=== PATIENT | female | born 1965 | race American Indian/Alaskan Native ===

== ENCOUNTER 2017-11-28 22:18 | Emergency (ER) | payer SELFPAY ==
[2017-11-28 22:32] VITALS: RESP 18; TEMP 98.4
[2017-11-28] MEDS ORDERED: Sodium Chloride 0.9% 1,000 ML IV ONE (23:16)
--- NOTE | 2017-11-28 23:22 | C.PDOC ---
History Of Present Illness 52 year old female presents to the ER with a complaint of intermittent vaginal bleeding for the past 1 year, associated with hypogastric pain. Denies fever, chills, nausea, or vomiting. Chief Complaint (Nursing): Female Genitourinary History Per: Patient History/Exam Limitations: no limitations Onset/Duration Of Symptoms: Days, Intermittent Episodes Current Symptoms Are (Timing): Still Present Quality Of Discomfort: Unable To Describe Associated Symptoms: denies: Fever, Chills, Nausea, Vomiting Alleviating Factors: None Recent travel outside of the [place]: No Abnormal Vaginal Bleeding: Yes Past Medical History Reviewed: Historical Data, Nursing Documentation, Vital Signs Vital Signs: Last Vital Signs Temp 98.4 F 11/28/17 22:22 Pulse 72 11/29/17 02:20 Resp 18 11/29/17 02:20 BP 168/89 H 11/29/17 02:20 Pulse Ox 99 11/29/17 02:20 - Medical History PMH: HTN Family History: States: Unknown Family Hx - Social History Hx Alcohol Use: Yes (beer) Hx Substance Use: Yes - Immunization History Hx Tetanus Toxoid Vaccination: No Hx Influenza Vaccination: No Hx Pneumococcal Vaccination: No Review Of Systems Constitutional: Negative for: Fever, Chills Cardiovascular: Negative for: Chest Pain, Palpitations Respiratory: Negative for: Cough, Shortness of Breath Gastrointestinal: Positive for: Abdominal Pain. Negative for: Nausea, Vomiting Genitourinary: Positive for: Vaginal Bleeding Physical Exam - Physical Exam Appears: Non-toxic Skin: Normal Color, Warm, Dry Head: Atraumatic, Normacephalic Eye(s): bilateral: Normal Inspection Oral Mucosa: Moist Neck: Normal, Supple Chest: Symmetrical, No Tenderness Cardiovascular: Rhythm Regular Respiratory: Normal Breath Sounds, No Rales, No Rhonchi, No Wheezing Gastrointestinal/Abdominal: Soft, No Tenderness Pelvic: Normal External Exam, Other (Cervix closed, blood clot in the vault with minimal active bleeding, presence of mass anteriorly) Neurological/Psych: Oriented x3, Normal Speech ED Course And Treatment - Laboratory Results Result Diagrams: 11/28/17 23:27 11/28/17 23:27 O2 Sat by Pulse Oximetry: 97 (Room air) Pulse Ox Interpretation: Normal Progress Note: Blood work and pelvis US ordered. IV fluids administered. Disposition Counseled Patient/Family Regarding: Diagnosis - Disposition Referrals: [facility] [Outside] Disposition: HOME/ ROUTINE Disposition Time: 02:46 Condition: STABLE Instructions: Uterine Fibroids Forms: [facility] (Tristanian) - POA Present On Arrival: None - Clinical Impression Clinical Impression: Fibroid (bleeding) (uterine) - Scribe Statement The provider has reviewed the documentation as recorded by the Scribe Corey Devine All medical record entries made by the Scribe were at my direction and personally dictated by me. I have reviewed the chart and agree that the record accurately reflects my personal performance of the history, physical exam, medical decision making, and the department course for this patient. I have also personally directed, reviewed, and agree with the discharge instructions and disposition.
[2017-11-28 23:31] LABS: BASO % 0.2 % (0.0-2.0); EOS # 0.1 K/uL (0.0-0.7); EOS % 1.2 % (0.0-4.0); HEMOGLOBIN 12.1 g/dL (11.0-16.0); LYMPH # 2.9 K/uL (1.0-4.3); LYMPH % 27.5 % (20.0-40.0); MEAN CELL VOLUME 83.9 fL (81.0-99.0); MEAN CORPUSCULAR HEMOGLOBIN 28.1 pg (27.0-31.0); MEAN CORPUSCULAR HGB CONC 33.5 g/dL (33.0-37.0); MEAN PLATELET VOLUME 8.1 fL (7.2-11.7); MONO # 0.6 K/uL (0.0-0.8); MONO % 5.9 % (0.0-10.0); NEUT % 65.2 % (50.0-75.0); RBC 4.33 Mil/uL (3.80-5.20); RED CELL DISTRIBUTION WIDTH 16.1 % (11.5-14.5); WHITE BLOOD COUNT 10.7 K/uL (4.8-10.8)
[2017-11-28 23:42] LABS: PROTHROMBIN TIME 11.1 SECONDS (9.7-12.2)
[2017-11-28 23:44] LABS: ALB/GLOB RATIO 1.4 (1.0-2.1); ALBUMIN 4.9 g/dL (3.5-5.0); CALCIUM 9.6 mg/dl (8.6-10.4); GFR AFRICAN-AMERICAN > 60; GFR NON-AFRICAN AMERICAN > 60
[2017-11-28 23:48] LABS: ALT/SGPT 22 U/L (9-52); AST/SGOT 28 U/L (14-36); BLOOD UREA NITROGEN 14 mg/dL (7-17)
[2017-11-29] MEDS ORDERED: Labetalol 25mg/5ml Syringe IVP STA (02:03)
[2017-11-29] MEDS ORDERED: Labetalol 25mg/5ml Syringe ONE (02:08)
[2017-11-29 02:21] VITALS: BP 168/89; PULSE 72
[2017-11-29 02:48] VITALS: O2SAT 97
--- NOTE | 2017-11-29 08:26 | US ---
Date of service: 11/29/2017 HISTORY: vaginal bleed COMPARISON: None available. TECHNIQUE: Trans abdominal and transvaginal pelvic ultrasound was performed. FINDINGS: UTERUS: Measures 12.0 x 6.8 x 7.3 cm. Enlarged and anteverted. There is a 5.0 x 5.3 x 4.0 cm posterior wall fibroid in the fundus and 7.0 x 3.0 x 3.5 cm posterior wall intramural fibroid in the lower uterine segment. ENDOMETRIUM: Measures 10 mm in diameter. Unremarkable. CERVIX: No cervical abnormality identified. RIGHT OVARY: Not visualized. LEFT OVARY: Not visualized. FREE FLUID: No significant free fluid noted. OTHER FINDINGS: None. IMPRESSION: Enlarged fibroid uterus, with 2 documented fibroids, the larger posterior wall lower uterine segment fibroid measures 7.0 x 3.0 x 3.5 cm.
== END 2017-11-29 03:04 | disposition home or self-care (01) ==
LOC: C.ER 22:18
DX: D25.9 Leiomyoma of uterus, unspecified (principal); N93.9 Abnormal uterine and vaginal bleeding, unspecified
CPT/HCPCS: 76830; 76856; 80053; 84702; 85025; 85610; 85730; 86850; 86900; 99284; J7030

== ENCOUNTER 2018-03-19 17:49 | Observation (INO) | payer OTHER ==
[2018-03-19 17:50] VITALS: BMI 24.3
[2018-03-19 18:54] LABS: BASO # 0.1 K/uL (0.0-0.2); BASO % 0.6 % (0.0-2.0); EOS # 0.2 K/uL (0.0-0.7); EOS % 1.1 % (0.0-4.0); HEMOGLOBIN 11.6 g/dL (11.0-16.0); LYMPH # 1.8 K/uL (1.0-4.3); MEAN CELL VOLUME 72.2 fL (81.0-99.0); MEAN CORPUSCULAR HEMOGLOBIN 23.1 pg (27.0-31.0); MEAN PLATELET VOLUME 7.9 fL (7.2-11.7); MONO # 1.2 K/uL (0.0-0.8); NEUT # 11.9 K/uL (1.8-7.0); NEUT % 78.3 % (50.0-75.0); NRBC % 0.1 % (0.0-2.0); RBC 5.04 Mil/uL (3.80-5.20); RED CELL DISTRIBUTION WIDTH 18.2 % (11.5-14.5); WHITE BLOOD COUNT 15.2 K/uL (4.8-10.8)
[2018-03-19 18:58] LABS: ALB/GLOB RATIO 1.4 (1.0-2.1); ALBUMIN 5.1 g/dL (3.5-5.0); CALCIUM 10.1 mg/dl (8.6-10.4)
--- NOTE | 2018-03-19 18:58 | C.PDOC ---
History Of Present Illness 52 y/o female presents to the ED for evaluation s/p syncopal episode this evening. Patient states she is scheduled for hysterectomy, and has been coming to the clinic the last few weeks in order to manage her blood pressure. She is c urrently on 3 medications, and was seen in the clinic today for repeat pressure check. Her pressure remained elevated, so patient was given lisinopril orally and sent home. Patient then took a nap, got up to walk to the bathroom, and became briefly dizzy and lightheaded, then had syncopal episode. She denies any chest pain or palpitations. States she lost consciousness for a few seconds, and slowly slumped to the floor. Denies injury or head trauma. Patient then awoke and came to immediately, no evidence of seizure activity. Currently patient states she feels fine. She denies any current numbness, tingling, focal weakness, visual changes, or dizziness. Time Seen by Provider: 03/19/18 18:08 Chief Complaint (Nursing): Syncope History Per: Patient History/Exam Limitations: no limitations Onset/Duration Of Symptoms: Mins Current Symptoms Are (Timing): Gone Number Of Syncopal Episodes: 1 Activity At Onset Of Symptoms: Had Just Stood up Associated Symptoms Preceding Syncopal Episode: Lightheadedness Seizure Or Post-ictal Symptoms: None Fall Associated With With Symptoms: Yes, No Injury As Result Of Fall Past Medical History Reviewed: Historical Data, Nursing Documentation, Vital Signs Vital Signs: Last Vital Signs Temp 97.7 F 03/19/18 17:56 Pulse 106 H 03/19/18 17:56 Resp 22 03/19/18 18:20 BP 141/92 H 03/19/18 17:56 Pulse Ox 100 03/19/18 17:56 - Medical History PMH: HTN Other PMH: Fibroids Surgical History: No Surg Hx Family History: States: Unknown Family Hx - Social History Hx Alcohol Use: Yes (beer) Hx Substance Use: Yes (denies) - Immunization History Hx Tetanus Toxoid Vaccination: No Hx Influenza Vaccination: No Hx Pneumococcal Vaccination: No Review Of Systems Constitutional: Negative for: Fever, Chills ENT: Negative for: Nose Congestion Cardiovascular: Positive for: Light Headedness (prior to syncope). Negative fo r: Chest Pain, Palpitations Respiratory: Negative for: Cough, Shortness of Breath, SOB with Excertion Gastrointestinal: Negative for: Nausea, Vomiting Musculoskeletal: Negative for: Neck Pain Neurological: Positive for: Dizziness (prior to syncope), Other (+ Syncope). Negative for: Weakness, Numbness, Incoordination, Change in Speech, Confusion, Altered Mental Status, Headache Physical Exam - Physical Exam Appears: Non-toxic, No Acute Distress Skin: Normal Color, Warm, Dry Head: Atraumatic, Normacephalic, No Swelling (or hematoma) Eye(s): bilateral: Normal Inspection (no nystagmus), PERRL, EOMI Nose: Normal Oral Mucosa: Moist Teeth: Normal Dentition, No Tender To Palpation, No Loose Neck: Normal ROM, No Midline Cervical Tenderness, No Paracervical Tenderness, Supple Chest: Symmetrical Cardiovascular: Rhythm Regular, No Murmur Respiratory: Normal Breath Sounds, No Rales, No Rhonchi, No Wheezing Gastrointestinal/Abdominal: Soft, No Tenderness, No Distention Back: No Vertebral Tenderness, No Decreased ROM Extremity: Bilateral: Atraumatic, Normal Color And Temperature, Normal ROM Neurological/Psych: Oriented x3, Normal Speech, Normal Cranial Nerves, Other (No focal deficits) Gait: Steady ED Course And Treatment - Laboratory Results Result Diagrams: 03/19/18 18:38 03/19/18 18:38 Lab Interpretation: Abnormal (WBC 15.2, BUN 19, Cr 1.7, K+ 3.0) ECG: Interpreted By Tn ECG Rhythm: Sinus Rhythm (with LVH), ST/T Changes, Nonspecific Changes ECG Interpretation: No Acute Changes O2 Sat by Pulse Oximetry: 100 (RA) Pulse Ox Interpretation: Normal - CT Scan/US CT head Other Rad Studies (CT/US): Read By Radiologist, Radiology Report Reviewed CT/US Interpretation: EXAM: CT Head without Intravenous Contrast. CLINICAL HISTORY: AMS HEARDACHE. TECHNIQUE: Axial computed tomography images of the head/brain without intravenous contrast. 0.00 mGy-cm. COMPARISON: None provided. FINDINGS: BRAIN. No acute intraparenchymal hemorrhage. No mass lesion. No CT evidence for acute territorial infarct. No midline shift or extra- axial collections. VENTRICLES: No hydrocephalus. ORBITS: The orbits are unremarkable. SINUSES AND MASTOIDS: The paranasal sinuses and mastoid air cells are clear. BONES: No fracture. SOFT TISSUES: Unremarkable. IMPRESSION: No acute intracranial abnormality. . Electronically signed on Mar 19, 2018 9:15:29 PM EST by: Guy Zaidi M.D., Certified by [facility]BR, Diagnostic Radiology Progress Note: Repeat BP 87/58, 93/66. Reevaluation Time: 21:30 Reassessment Condition: Unchanged - Physician Consult Information Time Consulting Physician Contacted: 21:30 Physician Contacted: Gamal Darden Outcome Of Conversation: Patient to be kept on observation for BP monitoring. Medical Decision Making Medical Decision Making: Initial Plan: --EKG --CMP --CBC --CT Head --Reassess and dispo Disposition - Disposition Disposition: HOSPITALIZED Disposition Time: 21:34 Condition: FAIR - POA Present On Arrival: None - Clinical Impression Clinical Impression: Syncope, Labile blood pressure - Scribe Statement The provider has reviewed the documentation as recorded by the Danni Flynn Provider Attestation: All medical record entries made by the Awildaibe were at my direction and personally dictated by me. I have reviewed the chart and agree that the record accurately reflects my personal performance of the history, physical exam, medical decision making, and the department course for this patient. I have also personally directed, reviewed, and agree with the discharge instructions and disposition.
[2018-03-19] MEDS ORDERED: Sodium Chloride 0.9% 1,000 ML IV ONE (21:11)
[2018-03-19] MEDS ORDERED: Sodium Chloride 0.9% 1,000 ML ONE (21:12)
--- NOTE | 2018-03-19 23:19 | CP.PCM.HP ---
<Merari Stout P - Last Filed: 03/20/18 02:18> History of Present Illness - History of Present Illness History of Present Illness: H&P for Hospitalist service CC: Syncope HPI: 52 year old female with PMHx of HTN and abnormal uterine bleeding due to uterine fibroids presents to ED for evaluation following a syncopal episode today. Patient states she has been following up her elevated blood pressure at the [facility] in order to be cleared for a hysterectomy later this week. She was placed on two new anti-hypertensives in the last two weeks with continued elevated BP readings. She was found with elevated blood pressure at 199/89 today during her BP check at the clinic. She was given a stat dose of lisinopril 10mg and her repeat BP was 175/92. Patient states he went home and began feeling lightheaded and decided to lay down. She then got up to walk to the bathroom and states the next thing she remembers is being on the floor. Episode was unwitnessed. Patient states she awoke with blurred vision, diaphoresis, palpitations, nausea and mild shortness of breath. Symptoms lasted approximately 30 minutes before resolving spontaneously. Patient also complains of mild left foot pain. She believes she twisted it on the way down. Patient states she had not eaten all day because her BP meds work better on an empty stomach. Patient states she has had vaginal bleeding daily for the past year due to fibroids, but the bleeding has been light for the past 2 weeks. She changes her pad every 4 hours. Patient denies tongue biting, incontinence, focal weakness, numbness, tingling, change in hearing, slurred speech, confusion, chest pain, jaw pain, vomiting, fever and chills. PMHx: HTN, uterine leiomyoma, abnormal uterine bleeding PSHx: Lumpectomy R breast-benign results (1990), tubal ligation (1994) Meds: amlodipine 10mg once daily, HCTZ 25mg once daily (started 03/13), Hydralazine 25mg TID (started 03/17), patient is prescribed but does not take ferrous sulfate 325 daily and colace 100mg daily PRN Allergies: NDKA FamHx: mother- HTN, uncle-DM SocHx: smokes 5 cigarettes daily for 25 years, drinks 3 beers daily-denies hx of withdrawal sx, smoke marijuana Proxy: Mother Tameka Gregorio C:[phone], H: [id number] Code status: full PMD: [facility] Review of Systems: -Gen: +diaphoresis, +lightheadedness, No fever, No chills, No headache, No lethargy, No weakness. -HEENT: + blurred vision, No change in hearing, No sore throat, No dysphagia, No nasal congestion, No mucous. -Cardio: No chest pain, + palpitations, No lower extremity edema, No orthopnea. -Resp: No cough, + dyspnea, No hemoptysis, No wheezing, No pain on inspiration. -GI: No abdominal pain, + nausea, No vomiting, No diarrhea/constipation, No hematochezia, No hematemesis. -: + vaginal bleeding, No dysuria, No urinary freq, No incontinence, No hematuria -MSK: + L foot pain, No back pain, No muscle weakness, No radiating pain. -Skin: No itching, No rash, No lesions. -Neuro: No confusion, No numbness, No tingling, No focal weakness, No radicular pain, + syncope. -Psych: No anxiety, No depression, No H/I, No S/I, No hallucinations. Present on Admission - Present on Admission Any Indicators Present on Admission: No Past Patient History - Infectious Disease Hx of Infectious Diseases: None - Past Social History Smoking Status: Light Smoker < 10 Cigarettes Daily - CARDIAC Hx Hypertension: Yes - GENITOURINARY/GYNECOLOGICAL Other/Comment: fibroids - PSYCHIATRIC Hx Substance Use: Yes (denies) - SURGICAL HISTORY Hx Surgeries: No - ANESTHESIA Hx Anesthesia: Yes Hx Anesthesia Reactions: No Meds Allergies/Adverse Reactions: Allergies Allergy/AdvReac Type Severity Reaction Status Date / Time No Known Allergies Allergy Verified 11/28/17 22:31 Physical Exam - Constitutional Appears: No Acute Distress - Head Exam Head Exam: ATRAUMATIC, NORMOCEPHALIC - Eye Exam Eye Exam: EOMI, PERRL - ENT Exam ENT Exam: Mucous Membranes Dry - Neck Exam Neck exam: Positive for: Full Rom, Normal Inspection - Respiratory Exam Respiratory Exam: Clear to Auscultation Bilateral. absent: Rales, Rhonchi, Wheezes - Cardiovascular Exam Cardiovascular Exam: RRR, +S1, +S2 - GI/Abdominal Exam GI & Abdominal Exam: Normal Bowel Sounds, Soft. absent: Distended, Guarding, Rebound, Tenderness - Extremities Exam Extremities exam: Positive for: full ROM, normal inspection, pedal pulses present. Negative for: calf tenderness Additional comments: Mild tenderness to palpation of L lateral foot, no lesions, deformity, edema, or ecchymosis noted. Full ROM. - Neurological Exam Neurological exam: Alert, CN II-XII Intact, Oriented x3 Additional comments: 5/5 muscle strength - Psychiatric Exam Psychiatric exam: Normal Affect, Normal Mood - Skin Skin Exam: Dry, Intact, Normal Color, Warm Results - Vital Signs Recent Vital Signs: Last Vital Signs Temp 97.7 F 03/19/18 17:56 Pulse 68 03/19/18 22:28 Resp 20 03/19/18 22:28 BP 101/58 L 03/19/18 22:28 Pulse Ox 97 03/19/18 22:28 - Labs Result Diagrams: 03/19/18 18:38 03/19/18 18:38 Labs: Laboratory Results - last 24 hr 03/19/18 03/19/18 18:38 18:38 WBC 15.2 H RBC 5.04 Hgb 11.6 Hct 36.3 MCV 72.2 L D MCH 23.1 L MCHC 32.0 L RDW 18.2 H Plt Count 475 H MPV 7.9 Neut % (Auto) 78.3 H Lymph % (Auto) 12.0 L [place] % (Auto) 8.0 Eos % (Auto) 1.1 Baso % (Auto) 0.6 Neut # (Auto) 11.9 H Lymph # (Auto) 1.8 [place] # (Auto) 1.2 H Eos # (Auto) 0.2 Baso # (Auto) 0.1 Sodium 133 Potassium 3.0 L Chloride 91 L Carbon Dioxide 25 Anion Gap 20 BUN 19 H Creatinine 1.7 H Est GFR ( Amer) 38 Est GFR (Non-Af Amer) 32 Random Glucose 140 H Calcium 10.1 Total Bilirubin 0.6 AST 39 H D ALT 31 Alkaline Phosphatase 112 Total Protein 8.8 H Albumin 5.1 H Globulin 3.7 Albumin/Globulin Ratio 1.4 Assessment & Plan - Assessment and Plan (Free Text) Plan: 52 year old female with PMHx of HTN and abnormal uterine bleeding due to uterine fibroids presents to ED for evaluation following a syncopal episode Syncope -Likely secondary to overcorrection of blood pressure -CT head: no acute abnormality -EKG: NSR at 82 bpm, biatrial enlargement, LVH, nonspecific ST abnormality -IVF @125 mls/hour -BP uptrending, monitor L foot pain -Acetaminophen 650mg Q6H PRN Hypokalemia -K+: 3.0 -Likely due to diuretic use -K-melida 40 given on admission -follow up morning K+ and Mg -K-melida 40 scheduled for 10AM Hx HTN -Restart home meds tomorrow with holding parameters -Amlodipine 10mg daily -HCTZ 25mg PO TID -Hydralazine 25mg PO TID Hx abnormal uterine bleeding secondary to uterine leiomyoma -Hgb 11.6 -abnormal RBC indicies -Ferrous sulfate 325 daily -colace 100mg daily PRN constipation Alcohol use -Drinks 1-3 beers daily, denies hx of withdrawal -Alcohol withdrawal assessment -Thiamine 100mg PO daily -Folic Acid 1g PO daily Prophylaxis -SCDs -Hold chemical anticoagulation secondary to uterine bleeding -GI ppx not indicated Case discussed with attending physician, Dr. Darden. <Gamal Darden - Last Filed: 03/20/18 06:26> Results - Vital Signs Recent Vital Signs: Last Vital Signs Temp 97.9 F 03/19/18 23:25 Pulse 73 03/19/18 23:25 Resp 20 03/19/18 23:25 BP 131/75 03/19/18 23:25 Pulse Ox 100 03/19/18 23:25 - Labs Result Diagrams: 03/19/18 18:38 03/19/18 18:38 Labs: Laboratory Results - last 24 hr 03/19/18 03/19/18 18:38 18:38 WBC 15.2 H RBC 5.04 Hgb 11.6 Hct 36.3 MCV 72.2 L D MCH 23.1 L MCHC 32.0 L RDW 18.2 H Plt Count 475 H MPV 7.9 Neut % (Auto) 78.3 H Lymph % (Auto) 12.0 L [place] % (Auto) 8.0 Eos % (Auto) 1.1 Baso % (Auto) 0.6 Neut # (Auto) 11.9 H Lymph # (Auto) 1.8 [place] # (Auto) 1.2 H Eos # (Auto) 0.2 Baso # (Auto) 0.1 Sodium 133 Potassium 3.0 L Chloride 91 L Carbon Dioxide 25 Anion Gap 20 BUN 19 H Creatinine 1.7 H Est GFR ( Amer) 38 Est GFR (Non-Af Amer) 32 Random Glucose 140 H Calcium 10.1 Total Bilirubin 0.6 AST 39 H D ALT 31 Alkaline Phosphatase 112 Total Protein 8.8 H Albumin 5.1 H Globulin 3.7 Albumin/Globulin Ratio 1.4 Assessment & Plan - Date & Time Date: 03/20/18 (I have seen and examined the patient. I agree with the findings and plan of care as documented by Dr. Stout. Patient with syncope. Episodes of hypotension. Recently added a new medication to hypertension regimen. Hold new medication. IVF. Fall precautions. CT head negative. Hypokalemia. Replete. Check magenesium level. Monitor for acute changes.) Time: 06:25 Attending/Attestation - Attestation I have personally seen and examined this patient.: Yes I have fully participated in the care of the patient.: Yes I have reviewed all pertinent clinical information: Yes
[2018-03-20] MEDS: Sodium Chloride 0.9% 1,000 ML IV SCH ×2 (00:27→07:45)
[2018-03-20] MEDS ORDERED: Potassium Chloride 20 mEq ER Tab PO ONE ×4 (07:00→14:00)
--- NOTE | 2018-03-20 07:19 | CT ---
Date of service: 03/19/2018 PROCEDURE: CT HEAD WITHOUT CONTRAST. HISTORY: Altered mental status COMPARISON: None available. TECHNIQUE: Axial computed tomography images were obtained through the head/brain without intravenous contrast. Radiation dose: Total exam DLP = 1068.6 mGy-cm. This CT exam was performed using one or more of the following dose reduction techniques: Automated exposure control, adjustment of the mA and/or kV according to patient size, and/or use of iterative reconstruction technique. FINDINGS: HEMORRHAGE: No intracranial hemorrhage. BRAIN: No mass effect or edema. No atrophy or chronic microvascular ischemic changes. VENTRICLES: Unremarkable. No hydrocephalus. CALVARIUM: Unremarkable. PARANASAL SINUSES: Unremarkable as visualized. No significant inflammatory changes. MASTOID AIR CELLS: Unremarkable as visualized. No inflammatory changes. OTHER FINDINGS: None. IMPRESSION: No acute intracranial abnormality. If symptoms persists, consider correlation with MRI. These findings were preliminarily reported at 9:15 p.m. on 03/19/[address] Guy Zaidi from [employer].
--- NOTE | 2018-03-20 07:52 | CP.PCM.PN ---
Subjective - Date & Time of Evaluation Date of Evaluation: 03/20/18 Time of Evaluation: 07:30 - Subjective Subjective: PGY-1 Medicine Progress Note for Dr. Hidalgo Patient was seen and examined today at bedside in no acute distress. Nurse reports no overnight events. Patient has no new complaints. 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 It requires only changing the pad every 4-5 hours instead of every 2. She is still experiencing some ankle pain, although the Tylenol is making it manageable. Denies headache, dizziness, blurry vision, double vision, weakness, abdominal pain, nausea, vomiting, constipation, diarrhea. Objective - Vital Signs/Intake and Output Vital Signs (last 24 hours): Temp Pulse Resp BP Pulse Ox 98.0 F 74 18 145/75 100 03/20/18 07:31 03/20/18 07:31 03/20/18 07:31 03/20/18 07:31 03/20/18 07:31 Intake and Output: 03/20/18 03/20/18 06:59 18:59 Intake Total 625 Balance 625 - Medications Medications: Current Medications Acetaminophen (Tylenol 325mg Tab) 650 mg PO Q6 PRN PRN Reason: Pain, moderate (4-7) Amlodipine Besylate (Norvasc) 10 mg PO DAILY BALA Docusate Sodium (Colace) 100 mg PO DAILY PRN PRN Reason: Constipation Ferrous Sulfate (Feosol) 325 mg PO DAILY [facility] Folic Acid (Folic Acid) 1 mg PO DAILY [facility] Hydralazine HCl (Apresoline) 25 mg PO TID BALA Hydrochlorothiazide (Hydrodiuril) 25 mg PO DAILY [facility] Sodium Chloride (Sodium Chloride 0.9%) 1,000 mls @ 125 mls/hr IV .Q8H [facility] Last Admin: 03/20/18 00:27 Dose: 125 mls/hr Influenza Virus Vaccine (Fluzone Quad [id number]) 60 mcg IM .ONCE ONE Stop: 03/22/18 10:01 Lorazepam (Ativan) 1 mg IVP Q6H PRN PRN Reason: Anxiety Pneumococcal Polyvalent Vaccine (Pneumovax 23 Vaccine) 0.5 ml IM .ONCE ONE Stop: 03/22/18 10:01 Potassium Chloride (K-Dur 20 Meq Er Tab) 40 meq PO ONCE ONE Stop: 11/15/18 10:01 Thiamine HCl (Vitamin B1 Tab) 100 mg PO DAILY BALA - Labs Labs: 03/19/18 18:38 03/19/18 18:38 - Constitutional Appears: Well, No Acute Distress - Head Exam Head Exam: ATRAUMATIC, NORMOCEPHALIC - Eye Exam Eye Exam: EOMI, PERRL - ENT Exam ENT Exam: Mucous Membranes Moist - Respiratory Exam Respiratory Exam: Clear to Ausculation Bilateral, NORMAL BREATHING PATTERN. absent: Rales, Rhonchi, Wheezes - Cardiovascular Exam Cardiovascular Exam: REGULAR RHYTHM, +S1, +S2. absent: Gallop, Rubs, Murmur - GI/Abdominal Exam GI & Abdominal Exam: Soft, Normal Bowel Sounds. absent: Distended, Firm, Guarding, Tenderness - Exam Speculum exam: Vaginal Bleeding Bimanual exam: Uterine Tenderness - Extremities Exam Extremities Exam: Normal Capillary Refill. absent: Calf Tenderness, Pedal Edema Additional comments: peripheral pulses palpable bilaterally (radial, PT, DP) IV access in R AC - Neurological Exam Neurological Exam: Alert, Awake, Oriented x3 - Psychiatric Exam Psychiatric exam: Normal Affect, Normal Mood - Skin Skin Exam: Dry, Normal Color, Warm Assessment and Plan - Assessment and Plan (Free Text) Assessment: 52yo F with PMHx of labile HTN and abnormal uterine bleeding due to uterine fibroids admitted for syncopal episode and hypokalemia. Plan: Syncope - Likely secondary to overcorrection of blood pressure - CT head (03/19): no acute intracranial abnormality - EKG: NSR at 82 bpm, biatrial enlargement, LVH, nonspecific ST abnormality - IVF @125 mls/hour - BP uptrending, monitor L foot pain - Acetaminophen 650mg po Q6H PRN Hypokalemia - Likely secondary to diuretic use - K 3.0 on admission - K-melida 40 given on admission, K-melida 40 given this AM - Trend with AM labs - Replete as necessary Hx HTN -Restart home meds tomorrow with holding parameters -Amlodipine 10mg daily -HCTZ 25mg PO TID -Hydralazine 25mg PO TID Hx abnormal uterine bleeding secondary to uterine leiomyoma -Hgb 11.6 -abnormal RBC indicies -Ferrous sulfate 325 daily -colace 100mg daily PRN constipation Alcohol use -Drinks 1-3 beers daily, denies hx of withdrawal -Alcohol withdrawal assessment -Thiamine 100mg PO daily -Folic Acid 1g PO daily Prophylaxis -SCDs -Hold chemical anticoagulation secondary to uterine bleeding -GI ppx not indicated d/w Dr. Gwen Stone PGY-1
[2018-03-20 08:10] LABS: BASO # 0.1 K/uL (0.0-0.2); BASO % 0.6 % (0.0-2.0); EOS # 0.1 K/uL (0.0-0.7); EOS % 1.3 % (0.0-4.0); LYMPH # 1.8 K/uL (1.0-4.3); LYMPH % 19.8 % (20.0-40.0); MEAN CELL VOLUME 72.2 fL (81.0-99.0); MEAN CORPUSCULAR HEMOGLOBIN 23.1 pg (27.0-31.0); MEAN CORPUSCULAR HGB CONC 32.1 g/dL (33.0-37.0); MONO # 0.8 K/uL (0.0-0.8); MONO % 8.2 % (0.0-10.0); NEUT # 6.5 K/uL (1.8-7.0); NEUT % 70.1 % (50.0-75.0); RBC 4.34 Mil/uL (3.80-5.20); RED CELL DISTRIBUTION WIDTH 17.6 % (11.5-14.5); WHITE BLOOD COUNT 9.3 K/uL (4.8-10.8)
[2018-03-20 08:47] LABS: ALB/GLOB RATIO 1.4 (1.0-2.1); ALBUMIN 4.2 g/dL (3.5-5.0); ALT/SGPT 28 U/L (9-52); AST/SGOT 34 U/L (14-36); BLOOD UREA NITROGEN 17 mg/dL (7-17); CALCIUM 9.2 mg/dl (8.6-10.4); GFR NON-AFRICAN AMERICAN 52
[2018-03-20] MEDS ORDERED: Enoxaparin 40 mg Syringe SC SCH (10:00)
--- NOTE | 2018-03-20 12:46 | CARD ---
APPROVED REPORT Date of service: 03/19/2018 EKG Measurement Heart [id number] <Conclusion> Normal sinus rhythm Biatrial enlargement Left ventricular hypertrophy Nonspecific ST and T wave abnormality Abnormal ECG
--- NOTE | 2018-03-20 15:42 | CP.PCM.DIS ---
<Swetha Stone - Last Filed: 03/20/18 15:35> Provider - Provider Date of Admission: 03/19/18 21:53 Attending physician: Dewey Hidalgo DO Time Spent in preparation of Discharge (in minutes): 45 Diagnosis - Discharge Diagnosis (1) Syncope Status: Acute Hospital Course - Lab Results Lab Results: Most Recent Lab Values WBC 9.3 K/uL (4.8-10.8) 03/20/18 07:57 RBC 4.34 Mil/uL (3.80-5.20) 03/20/18 07:57 Hgb 10.0 g/dL (11.0-16.0) L 03/20/18 07:57 Hct 31.3 % (34.0-47.0) L 03/20/18 07:57 MCV 72.2 fL (81.0-99.0) L 03/20/18 07:57 MCH 23.1 pg (27.0-31.0) L 03/20/18 07:57 MCHC 32.1 g/dL (33.0-37.0) L 03/20/18 07:57 RDW 17.6 % (11.5-14.5) H 03/20/18 07:57 Plt Count 409 K/uL (130-400) H 03/20/18 07:57 MPV 8.0 fL (7.2-11.7) 03/20/18 07:57 Neut % (Auto) 70.1 % (50.0-75.0) 03/20/18 07:57 Lymph % (Auto) 19.8 % (20.0-40.0) L 03/20/18 07:57 [place] % (Auto) 8.2 % (0.0-10.0) 03/20/18 07:57 Eos % (Auto) 1.3 % (0.0-4.0) 03/20/18 07:57 Baso % (Auto) 0.6 % (0.0-2.0) 03/20/18 07:57 Neut # (Auto) 6.5 K/uL (1.8-7.0) 03/20/18 07:57 Lymph # (Auto) 1.8 K/uL (1.0-4.3) 03/20/18 07:57 [place] # (Auto) 0.8 K/uL (0.0-0.8) 03/20/18 07:57 Eos # (Auto) 0.1 K/uL (0.0-0.7) 03/20/18 07:57 Baso # (Auto) 0.1 K/uL (0.0-0.2) 03/20/18 07:57 Sodium 136 mmol/L (132-148) 03/20/18 07:57 Potassium 3.1 mmol/L (3.6-5.2) L 03/20/18 07:57 Chloride 100 mmol/L (98-107) 03/20/18 07:57 Carbon Dioxide 27 mmol/L (22-30) 03/20/18 07:57 Anion Gap 12 (10-20) 03/20/18 07:57 BUN 17 mg/dL (7-17) 03/20/18 07:57 Creatinine 1.1 mg/dL (0.7-1.2) 03/20/18 07:57 Est GFR ( Amer) > 60 03/20/18 07:57 Est GFR (Non-Af Amer) 52 03/20/18 07:57 POC Glucose (mg/dL) 143 mg/dL (65-110) H 03/19/18 18:08 Random Glucose 112 mg/dL (65-105) H 03/20/18 07:57 Calcium 9.2 mg/dl (8.6-10.4) 03/20/18 07:57 Phosphorus 3.8 mg/dL (2.5-4.5) 03/20/18 07:57 Magnesium 2.1 mg/dL (1.6-2.3) 03/20/18 07:57 Total Bilirubin 0.7 mg/dL (0.2-1.3) 03/20/18 07:57 AST 34 U/L (14-36) 03/20/18 07:57 ALT 28 U/L (9-52) 03/20/18 07:57 Alkaline Phosphatase 89 U/L (38-126) 03/20/18 07:57 Total Protein 7.2 g/dL (6.3-8.3) 03/20/18 07:57 Albumin 4.2 g/dL (3.5-5.0) 03/20/18 07:57 Globulin 3.0 gm/dL (2.2-3.9) 03/20/18 07:57 Albumin/Globulin Ratio 1.4 (1.0-2.1) 03/20/18 07:57 - Hospital Course Hospital Course: 52 year old female with PMHx of HTN and abnormal uterine bleeding due to uterine fibroids presents to ED for evaluation following a syncopal episode today. Patient states she has been following up her elevated blood pressure at the [facility] in order to be cleared for a hysterectomy later this week. She was placed on two new anti-hypertensives in the last two weeks with continued elevated BP readings. She was found with elevated blood pressure at 199/89 today during her BP check at the clinic. She was given a stat dose of lisinopril 10mg and her repeat BP was 175/92. Patient states he went home and began feeling lightheaded and decided to lay down. She then got up to walk to the bathroom and states the next thing she remembers is being on the floor. Episode was unwitnessed. Patient states she awoke with blurred vision, diaphoresis, palpitations, nausea and mild shortness of breath. Symptoms lasted approximately 30 minutes before resolving spontaneously. Patient also complains of mild left foot pain. She believes she twisted it on the way down. Patient states she had not eaten all day because her BP meds work better on an empty stomach. Patient states she has had vaginal bleeding daily for the past year due to fibroids, but the bleeding has been light for the past 2 weeks. She changes her pad every 4 hours. Patient denies tongue biting, incontinence, focal weakness, numbness, tingling, change in hearing, slurred speech, confusion, chest pain, jaw pain, vomiting, fever and chills. CT Head showed no acute intracranial abnormalities. EKG NSR@82. IVF@125 started. Incidental hypokalemia noted on admission, supplemented with K-dur appropriately. Chronic issues of iron deficiency anemia, alcohol use well controlled with home meds. Patient clinically improved, is no longer complaining of dizziness and weakness. Labs corrected. Primary Diagnosis: Syncope 2/2 medication side effect Patient is clear for discharge and surgery per Dr. Hidalgo. Patient is to resume home meds as prescribed by her PMD, including the three antihypertensives that she has been on: amlodipine, hydralazine, and hydrochlorothiazide. She is NOT to take lisinopril additionally. She is also going to take supplemental potassium: K-Dur 20mg tablets. Take TWO tablets by mouth once a day for the next two days Patient is clear for surgery tomorrow with Dr. Dozier. She is to follow up at the [facility] within a week to check on her blood pressure, follow up her electrolyte levels, and the gynecologic surgery. If symptoms should return or worsen, she must inform Dr. Dozier prior to surgery and seek immediate medical attention. Plan was discussed with patient with family at bedside who understands and agrees. This is a summary of the hospital course. Please refer to the EMR for more detail. - Date & Time of H&P Date of H&P: 03/20/18 Time of H&P: 11:30 Discharge Exam - Head Exam Head Exam: ATRAUMATIC, NORMOCEPHALIC - Eye Exam Eye Exam: EOMI, PERRL - ENT Exam ENT Exam: Mucous Membranes Moist - Respiratory Exam Respiratory Exam: Clear to PA & Lateral, NORMAL BREATHING PATTERN, UNREMARKABLE. absent: Rales, Rhonchi, Wheezes - Cardiovascular Exam Cardiovascular Exam: REGULAR RHYTHM, +S1, +S2. absent: Gallop, Rubs, Systolic Murmur - GI/Abdominal Exam GI & Abdominal Exam: Normal Bowel Sounds, Soft. absent: Distended, Firm, Guarding, Tenderness - Exam Speculum exam: Vaginal Bleeding - Extremities Exam Extremities exam: normal capillary refill Additional comments: peripheral pulses palpable bilaterally (radial, PT, DP) IV access in R AC to be removed prior to discharge - Neurological Exam Neurological exam: Alert, Normal Gait, Oriented x3 - Psychiatric Exam Psychiatric exam: Normal Affect, Normal Mood - Skin Skin Exam: Dry, Normal Color, Warm Discharge Plan - Discharge Medications Prescriptions: RX: Potassium Chloride [K-Dur 20 mEq ER Tab] 40 meq PO ONCE #4 tab - Follow Up Plan Condition: FAIR Disposition: HOME/ ROUTINE Instructions: High Blood Pressure (DC), Potassium Chloride, Syncope (DC) Additional Instructions: Patient is clear for discharge and surgery per Dr. Hidalgo. Patient is to resume home meds as prescribed by her PMD, including the three antihypertensives that she has been on: amlodipine, hydralazine, and hydrochlorothiazide. She is NOT to take lisinopril additionally. She is also going to take supplemental potassium: K-Dur 20mg tablets. Take TWO tablets by mouth once a day for the next two days Patient is clear for surgery tomorrow with Dr. Dozier. She is to follow up at the [facility] within a week to check on her blood pressure, follow up her electrolyte levels, and the gynecologic surgery. If symptoms should return or worsen, she must inform Dr. Dozier prior to surgery and seek immediate medical attention. Plan was discussed with patient with family at bedside who understands and agrees. Referrals: [facility] at [facility] [Outside] <Dewey Hidalgo - Last Filed: 03/20/18 18:49> Provider - Provider Date of Admission: 03/19/18 21:53 Attending physician: Dewey Hidalgo DO Hospital Course - Lab Results Lab Results: Most Recent Lab Values WBC 9.3 K/uL (4.8-10.8) 03/20/18 07:57 RBC 4.34 Mil/uL (3.80-5.20) 03/20/18 07:57 Hgb 10.0 g/dL (11.0-16.0) L 03/20/18 07:57 Hct 31.3 % (34.0-47.0) L 03/20/18 07:57 MCV 72.2 fL (81.0-99.0) L 03/20/18 07:57 MCH 23.1 pg (27.0-31.0) L 03/20/18 07:57 MCHC 32.1 g/dL (33.0-37.0) L 03/20/18 07:57 RDW 17.6 % (11.5-14.5) H 03/20/18 07:57 Plt Count 409 K/uL (130-400) H 03/20/18 07:57 MPV 8.0 fL (7.2-11.7) 03/20/18 07:57 Neut % (Auto) 70.1 % (50.0-75.0) 03/20/18 07:57 Lymph % (Auto) 19.8 % (20.0-40.0) L 03/20/18 07:57 [place] % (Auto) 8.2 % (0.0-10.0) 03/20/18 07:57 Eos % (Auto) 1.3 % (0.0-4.0) 03/20/18 07:57 Baso % (Auto) 0.6 % (0.0-2.0) 03/20/18 07:57 Neut # (Auto) 6.5 K/uL (1.8-7.0) 03/20/18 07:57 Lymph # (Auto) 1.8 K/uL (1.0-4.3) 03/20/18 07:57 [place] # (Auto) 0.8 K/uL (0.0-0.8) 03/20/18 07:57 Eos # (Auto) 0.1 K/uL (0.0-0.7) 03/20/18 07:57 Baso # (Auto) 0.1 K/uL (0.0-0.2) 03/20/18 07:57 Sodium 136 mmol/L (132-148) 03/20/18 07:57 Potassium 3.1 mmol/L (3.6-5.2) L 03/20/18 07:57 Chloride 100 mmol/L (98-107) 03/20/18 07:57 Carbon Dioxide 27 mmol/L (22-30) 03/20/18 07:57 Anion Gap 12 (10-20) 03/20/18 07:57 BUN 17 mg/dL (7-17) 03/20/18 07:57 Creatinine 1.1 mg/dL (0.7-1.2) 03/20/18 07:57 Est GFR ( Amer) > 60 03/20/18 07:57 Est GFR (Non-Af Amer) 52 03/20/18 07:57 POC Glucose (mg/dL) 143 mg/dL (65-110) H 03/19/18 18:08 Random Glucose 112 mg/dL (65-105) H 03/20/18 07:57 Calcium 9.2 mg/dl (8.6-10.4) 03/20/18 07:57 Phosphorus 3.8 mg/dL (2.5-4.5) 03/20/18 07:57 Magnesium 2.1 mg/dL (1.6-2.3) 03/20/18 07:57 Total Bilirubin 0.7 mg/dL (0.2-1.3) 03/20/18 07:57 AST 34 U/L (14-36) 03/20/18 07:57 ALT 28 U/L (9-52) 03/20/18 07:57 Alkaline Phosphatase 89 U/L (38-126) 03/20/18 07:57 Total Protein 7.2 g/dL (6.3-8.3) 03/20/18 07:57 Albumin 4.2 g/dL (3.5-5.0) 03/20/18 07:57 Globulin 3.0 gm/dL (2.2-3.9) 03/20/18 07:57 Albumin/Globulin Ratio 1.4 (1.0-2.1) 03/20/18 07:57 Attending/Attestation - Attestation I have personally seen and examined this patient.: Yes I have fully participated in the care of the patient.: Yes I have reviewed all pertinent clinical information, including history, physical exam and plan: Yes Notes (Text): 03/20/18 18:43 Medical attending: Patient was seen and examined by me. Agree with the above note by the resident Her blood pressure was much more improved when we saw her and she was readily able to stand and walk with us on exam. On walking we reviewed her telemetry and it was stable NSR in the 90s. She denied dizziness or lightheadedness or chest pain when walking. We advised patient to hold off on the new medication lisinopril for the time being - also she needs to properly hydrate herself - from what I understand she took her other blood pressure medication without eating or drinking. She was eager to take all of her blood pressure medication since she really wants to be ready for surgery she will have soon. Dewey Hidalgo
[2018-03-20] MEDS ORDERED: Influenza Vaccine 60 MCG/0.5 ML SYR (3 yr & up) IM ONE (15:43)
[2018-03-20] MEDS ORDERED: Pneumococcal 23-Valent Vaccine IM ONE (15:44)
[2018-03-20 16:14] VITALS: BP 146/76; PULSE 77; RESP 20; TEMP 98.1; O2SAT 99
[2018-03-22] MEDS ORDERED: Influenza Vaccine 60 MCG/0.5 ML SYR (3 yr & up) IM ONE (10:00)
[2018-03-22] MEDS ORDERED: Pneumococcal 23-Valent Vaccine IM ONE (10:00)
== END 2018-03-20 16:29 | disposition home or self-care (01) ==
LOC: C.ER 17:49 → C.5S 21:53
PROVIDERS: ADMIT Hospitalist; ATTEND Hospitalist
DX: R55 Syncope and collapse (principal); I10 Essential (primary) hypertension; D25.9 Leiomyoma of uterus, unspecified; N93.9 Abnormal uterine and vaginal bleeding, unspecified; F17.210 Nicotine dependence, cigarettes, uncomplicated
CPT/HCPCS: 36415; 70450; 80053; 82948; 83735; 84100; 85025; 90471; 90674; 90732; 93005; 96360; 99285; G0378; J3480; J7030